=== PATIENT | female | born 1990 | race African-American/Black ===

== ENCOUNTER 2022-03-07 18:33 | Emergency (ER) | payer OTHER ==
[~2022-03-07] VITALS: Ht 152.4 cm; Wt 53.0 kg
[~2022-03-07 18:33] MED LIST: NO MEDS
[2022-03-07 20:49] LABS: URINE BILIRUBIN - DIPSTICK NEGATIVE (NEGATIVE); URINE BLOOD DIPSTICK LARGE (NEGATIVE); URINE COLOR YELLOW; URINE GLUCOSE - DIPSTICK NEGATIVE (NEGATIVE); URINE KETONE NEGATIVE (NEGATIVE); URINE LEUK ESTERASE NEGATIVE (NEGATIVE); URINE PROTEIN - DIPSTICK 100 mg/dL (NEG-TRACE); URINE UROBILINOGEN - DIPSTICK 0.2 E.U./dL (0.2)
[2022-03-07 20:51] LABS: URINE NITRITE - DIPSTICK NEGATIVE (Negative)
[2022-03-07 20:52] LABS: IMMATURE GRANULOCYTES 0.4 % (0.0-5.0); MEAN CORPUSCULAR HGB 29.8 pG CALC (26.0-32.0); MEAN CORPUSCULAR HGB CONC 36.9 g/dL CAL (32.0-36.0); NEUT# 14.28 thou/uL (2.00-7.15); RED BLOOD COUNT 3.39 mill/uL (4.20-5.60); RED CELL DISTRI WIDTH 13.6 % (11.5-15.5)
[2022-03-07 20:56] LABS: HEMATOCRIT 27.4 % (37.0-47.0); HEMOGLOBIN 10.1 g/dl (12.0-16.0); MEAN CELL VOLUME 80.8 fL CALC (80.0-100.0)
[2022-03-07 21:08] LABS: URINE RBC 25-50 RBC/hpf (0-5); URINE SQUAMOUS EPITHELIAL CELL FEW EPI/hpf (0-FEW)
[2022-03-07 21:42] LABS: BETA-HCG, QUANT(RESULT NUMBER) <2 mIU/mL
[2022-03-07 21:46] LABS: ALKALINE PHOSPHATASE 52 u/l (38-126); BILIRUBIN, TOTAL 0.4 mg/dL (0.0-1.4); CHLORIDE 104 mmol/l (95-108); POTASSIUM 3.7 mmol/l (3.5-5.1); SGOT/AST 29 u/l (14-36); SODIUM 138 mmol/l (137-146)
[2022-03-07 21:54] LABS: ALBUMIN 3.5 g/dL (3.2-5.0); ANION GAP 28 (6-22 (CALC)); BUN/CREATININE RATIO 6 (12-20 (CALC)); CARBON DIOXIDE 10 mmol/l (22-30); GFR FOR AFR.AMER. 2 ML/MIN (>=60 (CALC)); GFR OTHER RACES 2 ML/MIN (>=60 (CALC)); TOTAL PROTEIN 6.7 g/dL (6.3-8.2)
[2022-03-07 21:55] LABS: BUN 126 mg/dL (7-17); CREATININE 22.5 mg/dL (0.5-1.0)
[2022-03-08 04:56] VITALS: BP 160/89
== END 2022-03-08 03:00 | disposition short-term general hospital (02) ==
LOC: ED 18:33
PROVIDERS: Emergency Medicine
DX: J18.9 Pneumonia, unspecified organism (principal); N17.9 Acute kidney failure, unspecified; D57.1 Sickle-cell disease without crisis; J45.909 Unspecified asthma, uncomplicated; F17.200 Nicotine dependence, unspecified, uncomplicated; Z20.822 Contact with and (suspected) exposure to COVID-19
CPT/HCPCS: J1956